=== PATIENT | male | born 1975 | race Caucasian/White ===

== ENCOUNTER 2019-02-03 18:27 | Emergency (ER) | payer MEDICAID, OTHER ==
[~2019-02-03] VITALS: Ht 182.8 cm; Wt 110.5 kg
[~2019-02-03 18:27] MED LIST: CLON0.2T PO; CYCL10TA9 PO; DCCL10A2 IM; HYDR-700 PO; ONDA8TAB6 PO
[2019-02-03] MEDS ORDERED: ONDANSETRON 4 MG (ZOFRAN) ORAL DISSOLVE TAB PO STA (18:45)
[2019-02-03] MEDS ORDERED: morphine INJ 10 MG/ML 1ML (SYR OR VIAL) IM STA (18:45)
[2019-02-03] MEDS ORDERED: IBUPROFEN 600 MG (MOTRIN) TAB PO ONE (19:00)
[2019-02-03] MEDS ORDERED: SILVER SULFADIAZINE 50 GM CREAM ONE (19:02)
[2019-02-03] MEDS ORDERED: SILV20CR14 TP (19:18)
[2019-02-03] MEDS ORDERED: IBUP-1773 PO (19:18)
[2019-02-03] MEDS ORDERED: OXYC1TAB12 PO (19:19)
[2019-02-03 19:26] VITALS: BP 147/90
[2019-02-04] MEDS ORDERED: SILVER SULFADIAZINE 50 GM CREAM TOP SCH (09:00)
--- OUTSIDE RECORDS SUMMARY | 2019-02-26 13:09 | XMS REPORT | Continuity of Care Document ---
Author Organization Unknown Address Unknown Phone Unavailable Allergies Active Description Code Type Severity Reaction Onset Reported/Identified Relationship to Patient Clinical Status Yes No Known Drug Allergies [id number] Drug Allergy Unknown N/A 02/03/2019 Medications There is no data. Problems There is no data. Procedures There is no data. Results There is no data. Encounters ACCT No. Visit Date/Time Discharge Status Pt. Type Provider Facility Loc./Unit Complaint [id number] 02/03/2019 18:29:00 02/03/2019 19:26:00 DIS Emergency FUENTES NASIR LITTLEJOHN [facility] ER FS LT HAND PARRA
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
== END 2019-02-03 19:26 | disposition home or self-care (01) ==
LOC: ER FS 18:29
DX: T23.292A Burn of second degree of multiple sites of left wrist and hand, initial encounter (principal); T31.0 Burns involving less than 10% of body surface; X12.XXXA Contact with other hot fluids, initial encounter
CPT/HCPCS: 96372; 99284